=== PATIENT | female | born 1995 | race African-American/Black ===

== ENCOUNTER 2016-09-14 00:22 | Emergency (ER) | payer OTHER ==
[~2016-09-14] VITALS: Ht 160 cm; Wt 89.0 kg
[~2016-09-14 00:22] MED LIST: ANTIBIOTICS PO; ROBA500T PO
[2016-09-14 00:25] VITALS: BP 117/63; PULSE 91; RESP 16; TEMP 98.5; O2SAT 97
[2016-09-14] MEDS ORDERED: ALBUAER3 INH (02:05)
[2016-09-14] MEDS ORDERED: PRED20 PO (02:05)
--- NOTE | 2016-09-14 02:10 | PD ---
HPI Chief Complaint: Cold / Flu Symptoms Time Seen by Provider: 01:58 Travel History International Travel<30 days: No Contact w/Intl Traveler<30days: No Traveled to known affect area: No History of Present Illness HPI This is a 20-year-old female with history of asthma who presents for evaluation. She has had a cough and wheezing since this morning. The cough is nonproductive. She denies sick contacts, recent travel, fevers or chills, sore throat, ear pain. In the past she was using an albuterol inhaler as needed for asthma however she has run out. She has no other complaints. PFSH Past Medical History Diminished Hearing: No Respiratory: Yes (ASTHMA) ?: Not LMP: 2-3 WKS AGO Menopausal: Yes : 0 Social History Alcohol Use: Yes (NOT VERY OFTEN) Tobacco Use: No Substance Use: No (MARIJUANA X 1 MONTH) Allergies-Medications (Allergen,Severity, Reaction): Coded Allergies: Nonsteroidal Anti-Inflammatory Agts (Verified Adverse Reaction, Severe, severe reflux, 09/14/16) Reported Meds & Prescriptions Reported Meds & Active Scripts Active Proair Hfa 8.5 GM Inh (Albuterol Sulfate) 90 Mcg/Act Aer 2 Puff INH Q4-6H PRN 108 mcg/actuation Prednisone 20 Mg Tab 20 Mg PO BID 5 Days Robaxin (Methocarbamol) 500 Mg Tab 500 Mg PO QID Reported [2 antibiotics] Unknown Dose PO DAILY Review of Systems Except as stated in HPI: all other systems reviewed are Neg Physical Exam Narrative GENERAL: Well-developed well-nourished female in no acute distress SKIN: Warm and dry. HEAD: Atraumatic. Normocephalic. EYES: Pupils equal and round. No scleral icterus. No injection or drainage. ENT: No nasal bleeding or discharge. Mucous membranes pink and moist. NECK: Trachea midline. No JVD. CARDIOVASCULAR: Regular rate and rhythm. No murmur appreciated. RESPIRATORY: No accessory muscle use. Slight wheezing. No crackles. Data Data Last Documented VS Vital Signs Date Time Temp Pulse Resp B/P Pulse Ox O2 Delivery O2 Flow Rate FiO2 09/14/16 00:25 98.5 91 16 117/63 97 Room Air Orders Prednisone (Deltasone) (09/14/16 02:15) Albuterol-Ipratropium Neb (Duoneb Neb) (09/14/16 02:15) [facility] Medical Decision Making Medical Screen Exam Complete: Yes Emergency Medical Condition: Yes Medical Record Reviewed: Yes Differential Diagnosis Asthma exacerbation, bronchitis, pneumonia, reactive airway disease, bronchiolitis, pertussis Narrative Course 20-year-old female with history of asthma presents with a one-day history of cough, wheezing. On examination she has slight wheezing bilaterally. Therefore she will be treated with DuoNeb, prednisone. Examination is consistent with asthma exacerbation, likely secondary to viral upper respiratory infection. She is stable for discharge. Diagnosis Primary Impression: Asthma exacerbation Additional Instructions: Medication as needed. Follow-up with primary care physician as needed. Return for any emergent medical conditions. Med/Other Pt SpecificInfo: Prescription(s) given Scripts Albuterol 8.5 GM Inh (Proair Hfa 8.5 GM Inh)90 Mcg/Act Aer2 Puff INH Q4-6H PRN ( SHORTNESS OF BREATH) #1 INHALER Ref 0 108 mcg/actuation Prov:Manuel Quijano MD 09/14/16 Prednisone 20 Mg Tab20 Mg PO BID 5 Days Ref 0 Prov:Manuel Quijano MD 09/14/16 Disposition: 01 DISCHARGE HOME Condition: Stable Titi Mccnan Sep 14, 2016 02:10
[2016-09-14] MEDS ORDERED: RESP: ALBUTEROL 2.5 MG/IPRATROPIUM 0.5 MG NEB (SCH) INH ONE (02:15)
[2016-09-14] MEDS ORDERED: predniSONE 20 MG TAB PO ONE (02:15)
== END 2016-09-14 03:30 | disposition home or self-care (01) ==
LOC: NEPB 00:22
DX: J45.901 Unspecified asthma with (acute) exacerbation (principal)
CPT/HCPCS: 94664; 99283; J7512

== ENCOUNTER 2016-09-16 13:17 | Emergency (ER) | payer OTHER ==
[~2016-09-16] VITALS: Ht 160 cm; Wt 90.0 kg
[~2016-09-16 13:17] MED LIST changes: +ALBUAER3 INH; +PRED20 PO
[2016-09-16 13:20] VITALS: BP 118/70; PULSE 100; RESP 16; TEMP 98.1; O2SAT 98
== END 2016-09-16 13:48 | disposition left against medical advice (07) ==
LOC: NEPE 13:17
DX: L29.9 Pruritus, unspecified (principal); L53.9 Erythematous condition, unspecified; Z53.21 Procedure and treatment not carried out due to patient leaving prior to being seen by health care provider
CPT/HCPCS: 99281

== ENCOUNTER 2016-10-25 19:46 | Emergency (ER) | payer OTHER ==
[~2016-10-25] VITALS: Ht 160 cm; Wt 92.1 kg
[2016-10-25 19:50] VITALS: BP 122/73; PULSE 102; RESP 14; TEMP 98.4; O2SAT 96
--- NOTE | 2016-10-25 22:30 | PD ---
HPI . Pelvic pain Chief Complaint: Abdominal Pain Time Seen by Provider: 22:17 Travel History International Travel<30 days: No Contact w/Intl Traveler<30days: No Traveled to known affect area: No History of Present Illness HPI Patient presents with pelvic pain which started 4 days ago. She is also complaining with nausea, vomiting, frequency of urination and vaginal discharge. She reports about 1 episode of emesis per day. The discharge is white. She has done a home test and it was positive. This is her first . 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 Her last normal menstrual period was September 27. [facility] Past Medical History Diminished Hearing: No Respiratory: Yes (ASTHMA) ?: LMP: SEP 2016 Menopausal: Yes : 0 Social History Alcohol Use: Yes (NOT VERY OFTEN) Tobacco Use: No Substance Use: No (MARIJUANA X 1 MONTH) Allergies-Medications (Allergen,Severity, Reaction): Coded Allergies: Nonsteroidal Anti-Inflammatory Agts (Verified Adverse Reaction, Severe, severe reflux, 10/25/16) Reported Meds & Prescriptions Reported Meds & Active Scripts Active No Active Prescriptions or Reported Medications Review of Systems Except as stated in HPI: all other systems reviewed are Neg Gastrointestinal: Positive: Nausea, Vomiting Genitourinary: Positive: Frequency, Pelvic Pain, Discharge Physical Exam Narrative GENERAL: The patient is smiling and in no distress. SKIN: Warm and dry. HEAD: Atraumatic. Normocephalic. EYES: Pupils equal and round. ENT: No nasal bleeding or discharge. Mucous membranes pink and moist. NECK: Trachea midline. CARDIOVASCULAR: Regular rate and rhythm. RESPIRATORY: No accessory muscle use. GASTROINTESTINAL: Abdomen soft, non-tender, nondistended. : She has a white discharge in the vaginal vault which appears physiological. The os is closed. She complains of cervical motion tenderness and diffuse tenderness to bimanual examination. The patient actually did not tolerate the exam very well. MUSCULOSKELETAL: No obvious deformities. No edema. NEUROLOGICAL: Awake and alert. No obvious cranial nerve deficits. Motor grossly within normal limits. Normal speech. PSYCHIATRIC: Appropriate mood and affect; insight and judgment normal. Data Data Last Documented VS Vital Signs Date Time Temp Pulse Resp B/P Pulse Ox O2 Delivery O2 Flow Rate FiO2 10/25/16 22:26 16 10/25/16 19:50 98.4 102 122/73 96 Room Air Orders Beta Hcg (Quant/Titer) (10/25/16 22:17) Urinalysis - C+S If Indicated (10/25/16 22:17) Ed Urine Pregnancytest Poc (10/25/16 22:17) Gc And Chlamydia Pcr (10/25/16 22:30) Wet Prep Profile (10/25/16 22:30) Ceftriaxone Inj (Rocephin Inj) (10/25/16 23:15) Lidocaine 1% Inj (50 Ml) (Xylocaine 1% I (10/25/16 23:15) Azithromycin (Zithromax) (10/25/16 23:15) Labs Laboratory Tests Test 10/25/16 10/25/16 10/25/16 22:20 22:45 22:50 Human Chorionic Gonadotropin, 290 MIU/ML Quant Clue Cells (Wet Prep) PRESENT Vaginal Trichomonas (Wet Prep) NONE SEEN Vaginal Yeast (Wet Prep) NONE SEEN Urine Color YELLOW Urine Turbidity CLEAR Urine pH 6.0 Urine Specific [place] 1.022 Urine Protein NEG mg/dL Urine Glucose (UA) NEG mg/dL Urine Ketones NEG mg/dL Urine Occult Blood NEG Urine Nitrite NEG Urine Bilirubin NEG Urine Urobilinogen LESS THAN 2.0 MG/DL Urine Leukocyte Esterase NEG Urine RBC LESS THAN 1 /hpf Urine Squamous Epithelial <1 /hpf Cells Microscopic Urinalysis Comment CULT NOT INDICATED MDM Medical Decision Making Medical Screen Exam Complete: Yes Emergency Medical Condition: Yes Differential Diagnosis Differential diagnosis of pelvic pain includes but is not limited to UTI, PID, ectopic , spontaneous AB, constipation, viral illness Narrative Course Patient presents stating that she is about 4 weeks and is having pelvic pain, nausea and vomiting, frequency of urination and vaginal discharge. I have done a quick look with the ultrasound machine and am unable to visualize any activity. Because of the tenderness on bimanual exam, I will go ahead and treat her with Rocephin and Zithromax to cover possible gonorrhea and chlamydia. UA is negative. Quantitative hCG is 290. Wet prep shows clue cells. Her quantitative hCG level would make visualization of impossible. Therefore ultrasound has been canceled. Diagnosis Primary Impression: Early stage of Additional Impression: Bacterial vaginosis Patient Instructions: Abdominal Pain in (ED), Bacterial Vaginosis ( ED), General Instructions Additional Instructions: Follow-up with an OB of your choice for care. Med/Other Pt SpecificInfo: Prescription(s) given Scripts Metronidazole (Flagyl)250 Mg Ueh521 Mg PO TID 7 Days Ref 0 Prov:Deedee Gonzalez MD 10/25/16 Disposition: 01 DISCHARGE HOME Condition: Stable Deedee Gonzalez MD Oct 25, 2016 22:30
[2016-10-25] MEDS ORDERED: AZITHROMYCIN 250 MG TAB PO ONE (23:15)
[2016-10-25] MEDS ORDERED: cefTRIAXone 250 MG VIAL IM ONE (23:15)
[2016-10-25] MEDS ORDERED: LIDOCAINE HCL 1% 50 ML VIAL XX ONE (23:15)
[2016-10-25 23:27] LABS: BETA HCG QUANT 290 MIU/ML (0-5)
[2016-10-25 23:31] LABS: BLOOD, URINE NEG (NEG); GLUCOSE,URINE NEG (NEG); KETONE, URINE NEG (NEG); NITRITE,URINE NEG (NEG); SQUAMOUS EPITHELIAL CELL URINE <1 /hpf (0-5); URINE COLOR YELLOW (YELLW/STRAW)
[2016-10-25 23:34] LABS: COMMENT (UR) CULT NOT INDICATED; CULTURE IF INDICATED CULT NOT INDICATED
[2016-10-25] MEDS ORDERED: METR250 PO (23:54)
[2016-10-26 01:53] LABS: CHLAMYDIA PCR NOT DETECTED (NOT DETECT); NEISSERIA PCR NOT DETECTED (NOT DETECT)
== END 2016-10-26 00:42 | disposition home or self-care (01) ==
LOC: NEPA 19:46
DX: O23.591 Infection of other part of genital tract in pregnancy, first trimester (principal); N76.0 Acute vaginitis; B96.89 Other specified bacterial agents as the cause of diseases classified elsewhere; O26.891 Other specified pregnancy related conditions, first trimester; R10.2 Pelvic and perineal pain; R35.0 Frequency of micturition; O21.9 Vomiting of pregnancy, unspecified; Z87.09 Personal history of other diseases of the respiratory system; Z3A.01 Less than 8 weeks gestation of pregnancy
CPT/HCPCS: 81001; 84702; 84703; 87210; 87491; 87591; 96372; 99284; J0696

== ENCOUNTER 2017-04-14 22:36 | Emergency (ER) | payer OTHER ==
[~2017-04-14] VITALS: Ht 165.1 cm; Wt 92.0 kg
[~2017-04-14 22:36] MED LIST changes: -ALBUAER3 INH; -ANTIBIOTICS PO; +METR250 PO; -PRED20 PO; -ROBA500T PO
[2017-04-14 22:40] VITALS: BP 118/85; PULSE 83; RESP 16; TEMP 98.6; O2SAT 98
== END 2017-04-15 00:12 | disposition left against medical advice (07) ==
LOC: NED 22:36
DX: R68.89 Other general symptoms and signs (principal)
CPT/HCPCS: 99281

== ENCOUNTER 2017-09-15 14:36 | Emergency (ER) | payer OTHER ==
[~2017-09-15] VITALS: Ht 160 cm; Wt 97.0 kg
[2017-09-15 14:38] VITALS: BP 131/70; PULSE 88; RESP 14; TEMP 98.6; O2SAT 96
--- NOTE | 2017-09-15 15:26 | PD ---
HPI . Abdominal pain Chief Complaint: [place] Tender Problem/Complaint Time Seen by Provider: 14:47 Travel History International Travel<30 days: No Contact w/Intl Traveler<30days: No Traveled to known affect area: No History of Present Illness HPI Patient presents with the chief complaint of lower abdominal pain for the last 2 weeks. She states the pain comes and goes. It is associated with nausea but no vomiting or diarrhea. No fever. No urinary tract symptoms such as dysuria, frequency or urgency. Positive vaginal discharge. No dyspareunia. Last normal menstrual period was May. Negative home tests 15 minutes prior to arrival. Pain rated 6/10 with no modifying factors. PFSH Past Medical History Asthma: Yes Diminished Hearing: No GERD: Yes Respiratory: Yes (ASTHMA) Immunizations Current: Yes Tetanus Vaccination: Unknown Influenza Vaccination: No ?: Not LMP: 2-3 MONTHS AGO Menopausal: Yes : 0 Past Surgical History Surgical History: No Previous Surgery Social History Alcohol Use: Yes Tobacco Use: No Substance Use: Yes (MARIJUANA) Allergies-Medications (Allergen,Severity, Reaction): Coded Allergies: aspirin (Verified Allergy, Unknown, 09/15/17) diclofenac (Unverified Adverse Reaction, Severe, severe reflux, 09/15/17) etodolac (Unverified Adverse Reaction, Severe, severe reflux, 09/15/17) flurbiprofen (Unverified Adverse Reaction, Severe, severe reflux, 09/15/17) ibuprofen (Unverified Adverse Reaction, Severe, severe reflux, 09/15/17) indomethacin (Unverified Adverse Reaction, Severe, severe reflux, 09/15/17) ketoprofen (Unverified Adverse Reaction, Severe, severe reflux, 09/15/17) ketorolac (Unverified Adverse Reaction, Severe, severe reflux, 09/15/17) naproxen (Unverified Adverse Reaction, Severe, severe reflux, 09/15/17) oxaprozin (Unverified Adverse Reaction, Severe, severe reflux, 09/15/17) Reported Meds & Prescriptions Reported Meds & Active Scripts Active Flagyl (Metronidazole) 250 Mg Tab 250 Mg PO TID 7 Days Review of Systems Except as stated in HPI: all other systems reviewed are Neg General / Constitutional: No: Fever, Chills Gastrointestinal: Positive: Nausea, No: Vomiting, Diarrhea Genitourinary: Positive: Pelvic Pain, Discharge, No: Urgency, Frequency, Dysuria, Dyspareunia, Vaginal Bleeding Physical Exam Narrative GENERAL: Awake and alert and in no distress. She is talking on her cell phone in no obvious distress. SKIN: warm/dry. HEAD: Normocephalic. Atraumatic. EYES: Pupils equal and round. No scleral icterus. No injection or drainage. ENT: No nasal bleeding or discharge. Mucous membranes pink and moist. NECK: Trachea midline. Full range of motion without pain.. CARDIOVASCULAR: Regular rate and rhythm. RESPIRATORY: No accessory muscle use. Clear to auscultation. Breath sounds equal bilaterally. GASTROINTESTINAL: Abdomen soft. Nontender. Bowel sounds present. Nondistended. : Normal female external genitalia. White rash in the vaginal vault. Bimanual exam was technically difficult. I was really not able to get my fingers around her cervix to check for cervical motion tenderness. She reports mild adnexal tenderness. MUSCULOSKELETAL: No obvious deformities. NEUROLOGICAL: Awake and alert. No obvious cranial nerve deficits. Motor grossly within normal limits. Normal speech. PSYCHIATRIC: Appropriate mood and affect; insight and judgment normal. Data Data Last Documented VS Vital Signs Date Time Temp Pulse Resp B/P (MAP) Pulse Ox O2 Delivery O2 Flow Rate FiO2 09/15/17 14:55 16 09/15/17 14:38 98.6 88 131/70 (90) 96 Orders Orders Urinalysis - C+S If Indicated (09/15/17 14:47) Ed Urine Pregnancytest Poc (09/15/17 14:47) Gc And Chlamydia Pcr (09/15/17 15:15) Wet Prep Profile (09/15/17 15:15) Labs Laboratory Tests Test 09/15/17 15:06 Urine Color YELLOW Urine Turbidity HAZY Urine pH 6.0 Urine Specific [place] 1.026 Urine Protein TRACE mg/dL Urine Glucose (UA) NEG mg/dL Urine Ketones NEG mg/dL Urine Occult Blood NEG Urine Nitrite NEG Urine Bilirubin NEG Urine Urobilinogen 2.0 MG/DL Urine Leukocyte Esterase NEG Urine Squamous Epithelial Cells 5 /hpf Urine Hyaline Casts 1 /lpf Urine Mucus FEW /lpf Microscopic Urinalysis Comment CULT NOT INDICATED MDM Medical Decision Making Medical Screen Exam Complete: Yes Emergency Medical Condition: Yes Differential Diagnosis Differential diagnosis of pelvic pain includes but is not limited to UTI, PID, ectopic , spontaneous AB, constipation, viral illness Narrative Course Patient presents complaining with a two-week history of pelvic pain which comes and goes. She reports a negative home test at home despite the fact that she has had amenorrhea since May. test here is negative. This patient be treated presumptively for PID because of her complaint of pelvic pain. She'll be given a shot of Rocephin here and will be discharged on doxycycline and Flagyl. Diagnosis Primary Impression: Pelvic inflammatory disease Patient Instructions: General Instructions, Pelvic Inflammatory Disease (DC) Med/Other Pt SpecificInfo: Prescription(s) given Scripts Metronidazole (Flagyl) 500 Mg Tab 500 MG PO twice a day for Infection for 7 Days, TAB 0 Refills Prov: Deedee Gonzalez MD 09/15/17 Doxycycline Hyclate (Doxycycline Hyclate) 100 Mg Cap 100 MG PO BID for Infection, #20 CAP 0 Refills Prov: Deedee Gonzalez MD 09/15/17 Disposition: 01 DISCHARGE HOME Condition: Stable Deedee Gonzalez MD Sep 15, 2017 15:26
[2017-09-15 15:32] LABS: BILIRUBIN, URINE NEG (NEG); BLOOD, URINE NEG (NEG); GLUCOSE,URINE NEG (NEG); HYALINE CAST, URINE 1 /lpf (RARE); KETONE, URINE NEG (NEG); MUCUS URINE FEW /lpf (OCC); NITRITE,URINE NEG (NEG); SQUAMOUS EPITHELIAL CELL URINE 5 /hpf (0-5); URINE COLOR YELLOW (YELLW/STRAW); URINE LEUKOCYTE ESTERASE NEG (NEG)
[2017-09-15] MEDS ORDERED: DOXY100C PO (16:11)
[2017-09-15] MEDS ORDERED: METR-1 PO (16:11)
[2017-09-15] MEDS ORDERED: cefTRIAXone 250 MG VIAL IM ONE (16:15)
[2017-09-15] MEDS ORDERED: LIDOCAINE HCL 1% 50 ML VIAL XX ONE (16:15)
[2017-09-15 17:07] VITALS: BP 121/78
== END 2017-09-15 17:11 | disposition home or self-care (01) ==
LOC: NEPD 14:36
DX: N73.9 Female pelvic inflammatory disease, unspecified (principal); J45.909 Unspecified asthma, uncomplicated; K21.9 Gastro-esophageal reflux disease without esophagitis; F12.90 Cannabis use, unspecified, uncomplicated
CPT/HCPCS: 81001; 84703; 87210; 87491; 87591; 96372; 99284; J0696

== ENCOUNTER 2017-09-25 13:49 | Emergency (ER) | payer OTHER ==
[~2017-09-25] VITALS: Ht 160 cm; Wt 96.8 kg
[~2017-09-25 13:49] MED LIST changes: +DOXY100C PO; +METR-1 PO; -METR250 PO
[2017-09-25 13:51] VITALS: BP 113/83; PULSE 88; RESP 16; TEMP 98.3; O2SAT 97
[2017-09-25 14:38] VITALS: O2SAT 100
[2017-09-25] MEDS ORDERED: PRED20 PO (15:32)
[2017-09-25] MEDS ORDERED: ALBUAER3 INH (15:32)
--- NOTE | 2017-09-25 15:33 | PD ---
HPI Chief Complaint: Respiratory Symptoms Time Seen by Provider: 15:16 Travel History International Travel<30 days: No Contact w/Intl Traveler<30days: No Traveled to known affect area: No History of Present Illness HPI This is a 21-year-old female here with chief complaint of cough and intermittent wheezing times one day. Patient reports she has a history of asthma and does not have her albuterol inhaler. She is requesting a refill. She denies fever or chills. She denies shortness of breath. She denies chest pain. She reports she's never been hospitalized or intubated for asthma. Symptom severity is moderate. No aggravating or alleviating factors. PFSH Past Medical History Medical History: Denies Significant Hx Asthma: Yes Diminished Hearing: No GERD: Yes Respiratory: Yes (ASTHMA) Immunizations Current: Yes ?: Unknown Menopausal: Yes : 0 Social History Alcohol Use: Yes Tobacco Use: No Substance Use: Yes (MARIJUANA) Allergies-Medications (Allergen,Severity, Reaction): Coded Allergies: aspirin (Verified Allergy, Unknown, 09/15/17) diclofenac (Unverified Adverse Reaction, Severe, severe reflux, 09/15/17) etodolac (Unverified Adverse Reaction, Severe, severe reflux, 09/15/17) flurbiprofen (Unverified Adverse Reaction, Severe, severe reflux, 09/15/17) ibuprofen (Unverified Adverse Reaction, Severe, severe reflux, 09/15/17) indomethacin (Unverified Adverse Reaction, Severe, severe reflux, 09/15/17) ketoprofen (Unverified Adverse Reaction, Severe, severe reflux, 09/15/17) ketorolac (Unverified Adverse Reaction, Severe, severe reflux, 09/15/17) naproxen (Unverified Adverse Reaction, Severe, severe reflux, 09/15/17) oxaprozin (Unverified Adverse Reaction, Severe, severe reflux, 09/15/17) Reported Meds & Prescriptions Reported Meds & Active Scripts Active Flagyl (Metronidazole) 500 Mg Tab 500 Mg PO TWICE A DAY 7 Days Doxycycline Hyclate 100 Mg Cap 100 Mg PO BID Review of Systems Except as stated in HPI: all other systems reviewed are Neg General / Constitutional: No: Fever Eyes: No: Visual changes HENT: No: Headaches Cardiovascular: No: Chest Pain or Discomfort Respiratory: Positive: Cough, Wheezing Gastrointestinal: No: Abdominal Pain Genitourinary: No: Dysuria Physical Exam Narrative GENERAL: Alert and well-appearing 21-year-old female. No distress. SKIN: Warm and dry. HEAD: Normocephalic. EYES:No injection or drainage. NECK: Supple, trachea midline. CARDIOVASCULAR: Regular rate and rhythm without murmurs, gallops, or rubs. RESPIRATORY: Breath sounds equal bilaterally. No accessory muscle use. Faint expiratory wheezes. Data Data Last Documented VS Vital Signs Date Time Temp Pulse Resp B/P (MAP) Pulse Ox O2 Delivery O2 Flow Rate FiO2 09/25/17 14:38 100 Room Air 09/25/17 13:51 98.3 88 16 MDM Medical Decision Making Medical Screen Exam Complete: Yes Emergency Medical Condition: Yes Differential Diagnosis Asthma exacerbation, medication noncompliance, URI Narrative Course This is a 21-year-old female here with cough and intermittent wheezing times one day. She has a history of asthma. She is well-appearing. No respiratory distress. She was offered a breathing treatment in the ED she declined. She' ll be prescribed a short dose of steroids and prescribed albuterol inhaler. Diagnosis Primary Impression: URI (upper respiratory infection) Qualified Codes: J06.9 - Acute upper respiratory infection, unspecified Additional Impression: Asthma Qualified Codes: J45.998 - Other asthma Referrals: [facility] Additional Instructions: Medications as prescribed. Return to emergency department if you have new or worsening symptoms. Scripts Albuterol 8.5 GM Inh (Proair Hfa 8.5 GM Inh) 90 Mcg/Act Aer 2 PUFF INH Q4-6H Y for SHORTNESS OF BREATH, #1 INHALER 0 Refills 108 mcg/actuation Prov: Mare Negrete 09/25/17 Prednisone (Prednisone) 20 Mg Tab 40 MG PO DAILY, #8 TAB 0 Refills Take 40 mg (2 tablets) daily for 5 days Prov: Mare Negrete 09/25/17 Disposition: 01 DISCHARGE HOME Condition: Stable Mare Negrete Sep 25, 2017 15:33
== END 2017-09-25 15:49 | disposition home or self-care (01) ==
LOC: NEPK 13:49
DX: J06.9 Acute upper respiratory infection, unspecified (principal); J45.998 Other asthma; F12.90 Cannabis use, unspecified, uncomplicated
CPT/HCPCS: 99284

== ENCOUNTER 2017-10-24 13:09 | Emergency (ER) | payer OTHER ==
[~2017-10-24 13:09] MED LIST changes: +ALBUAER3 INH; +PRED20 PO
[2017-10-24 14:34] LABS: BILIRUBIN, URINE NEG (NEG); BLOOD, URINE NEG (NEG); GLUCOSE,URINE NEG (NEG); KETONE, URINE NEG (NEG); MUCUS URINE FEW /lpf (OCC); NITRITE,URINE NEG (NEG); PH, URINE 5.5 (5.0-8.5); SQUAMOUS EPITHELIAL CELL URINE 2 /hpf (0-5); TRANSITIONAL EPI CELLS, URINE <1 /hpf; URINE COLOR YELLOW (YELLW/STRAW); URINE LEUKOCYTE ESTERASE NEG (NEG)
[2017-10-24 14:34] LABS: AUTOMATED NEUTROPHIL # 6.9 TH/MM3 (1.8-7.7); BASOPHIL % 0.5 % (0.0-2.0); EOSINOPHIL # 0.4 TH/MM3 (0-0.4); EOSINOPHIL % 3.8 % (0.0-4.0); HEMATOCRIT 38.1 % (35.0-46.0); LYMPH % 17.6 % (9.0-44.0); LYMPHOCYTE # 1.7 TH/MM3 (1.0-4.8); MEAN CELL VOLUME 84.8 FL (80.0-100.0); MEAN CORPUSCULAR HEMOGLOBIN 28.9 PG (27.0-34.0); MEAN CORPUSCULAR HGB CONC 34.1 % (32.0-36.0); MEAN PLATELET VOLUME 7.9 FL (7.0-11.0); MONO % 4.3 % (0.0-8.0); MONOCYTE # 0.4 TH/MM3 (0-0.9); NEUT % 73.8 % (16.0-70.0); PLATELET COUNT 293 TH/MM3 (150-450); RED BLOOD COUNT 4.49 MIL/MM3 (4.00-5.30); WHITE BLOOD COUNT 9.4 TH/MM3 (4.0-11.0)
--- NOTE | 2017-10-24 14:45 | PD ---
HPI Chief Complaint: GI Complaint Time Seen by Provider: 14:44 Travel History International Travel<30 days: No Contact w/Intl Traveler<30days: No Traveled to known affect area: No History of Present Illness HPI 22-year-old -[place] female presents emergency department with sudden onset lower abdominal discomfort. Patient states she was in the active having intercourse, when the pain started. She denies fever, chills, urinary symptoms , diarrhea, nausea, vomiting, or vaginal discharge. Patient's last menstrual cycle was 10/03/2016. Pain was sharp at the beginning and now crampy. Patient states 6 out of 10. Labs ordered in triage. Patient states allergies to all NSAIDs, however this is due to nausea not hives or allergic reaction. PFSH Past Medical History Asthma: Yes Diminished Hearing: No GERD: Yes Respiratory: Yes (ASTHMA) Immunizations Current: Yes Tetanus Vaccination: Unknown Influenza Vaccination: No ?: Not Menopausal: Yes : 0 Social History Alcohol Use: Yes Tobacco Use: No Substance Use: Yes (MARIJUANA) Allergies-Medications (Allergen,Severity, Reaction): Coded Allergies: aspirin (Verified Allergy, Unknown, 10/24/17) diclofenac (Unverified Adverse Reaction, Severe, severe reflux, 10/24/17) etodolac (Unverified Adverse Reaction, Severe, severe reflux, 10/24/17) flurbiprofen (Unverified Adverse Reaction, Severe, severe reflux, 10/24/17) ibuprofen (Unverified Adverse Reaction, Severe, severe reflux, 10/24/17) indomethacin (Unverified Adverse Reaction, Severe, severe reflux, 10/24/17) ketoprofen (Unverified Adverse Reaction, Severe, severe reflux, 10/24/17) ketorolac (Unverified Adverse Reaction, Severe, severe reflux, 10/24/17) naproxen (Unverified Adverse Reaction, Severe, severe reflux, 10/24/17) oxaprozin (Unverified Adverse Reaction, Severe, severe reflux, 10/24/17) Reported Meds & Prescriptions Reported Meds & Active Scripts Active Proair Hfa 8.5 GM Inh (Albuterol Sulfate) 90 Mcg/Act Aer 2 Puff INH Q4-6H PRN 108 mcg/actuation Prednisone 20 Mg Tab 40 Mg PO DAILY Take 40 mg (2 tablets) daily for 5 days Flagyl (Metronidazole) 500 Mg Tab 500 Mg PO TWICE A DAY 7 Days Doxycycline Hyclate 100 Mg Cap 100 Mg PO BID Review of Systems Except as stated in HPI: all other systems reviewed are Neg General / Constitutional: No: Fever Eyes: No: Visual changes HENT: No: Headaches Cardiovascular: No: Chest Pain or Discomfort Respiratory: No: Shortness of Breath Gastrointestinal: No: Abdominal Pain Genitourinary: Positive: Pelvic Pain, No: Urgency, Frequency, Dysuria, Discharge, Vaginal Bleeding Musculoskeletal: No: Pain Skin: No Rash Neurologic: No: Weakness Psychiatric: No: Depression Endocrine: No: Polydipsia Hematologic/Lymphatic: No: Easy Bruising Physical Exam Narrative GENERAL: Patient is in no acute distress, giggling and laughing while examined. SKIN: Warm and dry. Normal color. Normal turgor HEAD: Atraumatic. Normocephalic. EYES: Pupils equal and round. No scleral icterus. No injection or drainage. ENT: No nasal bleeding or discharge. Mucous membranes pink and moist. NECK: Trachea midline. Supple and nontender. CARDIOVASCULAR: Regular rate and rhythm. RESPIRATORY: No accessory muscle use. Clear to auscultation. Breath sounds equal bilaterally. GASTROINTESTINAL: Abdomen soft, non-tender, nondistended. Hepatic and splenic margins not palpable. Mild suprapubic tenderness with palpation. No point tenderness or rebound. No guarding. No CVA tenderness. MUSCULOSKELETAL: Extremities without clubbing, cyanosis, or edema. No obvious deformities. NEUROLOGICAL: Awake and alert. No obvious cranial nerve deficits. Motor grossly within normal limits. Five out of 5 muscle strength in the arms and legs. Normal speech. PSYCHIATRIC: Appropriate mood and affect; insight and judgment normal. Data Data Orders Orders Complete Blood Count With Diff (10/24/17 13:55) Comprehensive Metabolic Panel (10/24/17 13:55) Urinalysis - C+S If Indicated (10/24/17 13:55) Ed Urine Pregnancytest Poc (10/24/17 13:55) Labs Laboratory Tests Test 10/24/17 14:10 10/24/17 14:19 White Blood Count 9.4 TH/MM3 Red Blood Count 4.49 MIL/MM3 Hemoglobin 13.0 GM/DL Hematocrit 38.1 % Mean Corpuscular Volume 84.8 FL Mean Corpuscular Hemoglobin 28.9 PG Mean Corpuscular Hemoglobin Concent 34.1 % Red Cell Distribution Width 14.0 % Platelet Count 293 TH/MM3 Mean Platelet Volume 7.9 FL Neutrophils (%) (Auto) 73.8 % Lymphocytes (%) (Auto) 17.6 % Monocytes (%) (Auto) 4.3 % Eosinophils (%) (Auto) 3.8 % Basophils (%) (Auto) 0.5 % Neutrophils # (Auto) 6.9 TH/MM3 Lymphocytes # (Auto) 1.7 TH/MM3 Monocytes # (Auto) 0.4 TH/MM3 Eosinophils # (Auto) 0.4 TH/MM3 Basophils # (Auto) 0.0 TH/MM3 CBC Comment DIFF FINAL Differential Comment Urine Color YELLOW Urine Turbidity CLEAR Urine pH 5.5 Urine Specific [place] 1.023 Urine Protein NEG mg/dL Urine Glucose (UA) NEG mg/dL Urine Ketones NEG mg/dL Urine Occult Blood NEG Urine Nitrite NEG Urine Bilirubin NEG Urine Urobilinogen LESS THAN 2.0 MG/DL Urine Leukocyte Esterase NEG Urine RBC LESS THAN 1 /hpf Urine WBC 2 /hpf Urine Squamous Epithelial Cells 2 /hpf Urine Transitional Epithelial Cells <1 /hpf Urine Mucus FEW /lpf Microscopic Urinalysis Comment CULT NOT INDICATED MDM Medical Decision Making Medical Screen Exam Complete: Yes Emergency Medical Condition: Yes Differential Diagnosis Pelvic pain. [place]. UTI. Ovulation. Narrative Course CBC is unremarkable. CMP is unremarkable. Urinalysis is unremarkable. Urine is negative. Further workup was not felt warranted based on my history and physical. Patient is given Toradol 60 mg IM. Patient follow-up if symptoms worsen as needed. Diagnosis [facility]: [facility] Patient Instructions: Acute Abdominal Pain (ED), General Instructions, [place] (DC) Additional Instructions: CBC is unremarkable. CMP is unremarkable. Urinalysis is unremarkable. Urine is negative. Further workup was not felt warranted based on my history and physical. Patient is given Toradol 60 mg IM. Patient follow-up if symptoms worsen as needed. Med/Other Pt SpecificInfo: No Meds Exist/No RX given Disposition: DISCHARGE HOME Condition: Stable Collin Rubio Oct 24, 2017 14:45
[2017-10-24 14:58] LABS: ALBUMIN 3.9 GM/DL (3.4-5.0); ALT (GPT) 25 U/L (10-53); AST (GOT) 12 U/L (15-37); BICARBONATE 24.3 MEQ/L (21.0-32.0); BLOOD UREA NITROGEN 11 MG/DL (7-18); CALCIUM 9.4 MG/DL (8.5-10.1); CHLORIDE 104 MEQ/L (98-107); CREATININE 0.78 MG/DL (0.50-1.00); GLOMERULAR FILTRATION RATE 112 ML/MIN (>89); GLUCOSE,RANDOM 103 MG/DL (74-106); SODIUM (NA) 137 MEQ/L (136-145)
[2017-10-24 15:00] LABS: ALKALINE PHOSPHATASE 93 U/L (45-117); TOTAL BILIRUBIN ADULT 0.4 MG/DL (0.2-1.0); TOTAL PROTEIN 8.5 GM/DL (6.4-8.2)
[2017-10-24] MEDS ORDERED: KETOROLAC TROMETHAMINE 60 MG/2 ML (IM) VIAL IM ONE (15:00)
== END 2017-10-24 15:21 | disposition home or self-care (01) ==
LOC: NEPD 13:09
DX: N94.0 Mittelschmerz (principal); J45.909 Unspecified asthma, uncomplicated; Z88.8 Allergy status to other drugs, medicaments and biological substances
CPT/HCPCS: 80053; 81001; 84703; 85025; 96372; 99283; J1885

== ENCOUNTER 2018-02-02 14:17 | Emergency (ER) | payer SELFPAY ==
[~2018-02-02] VITALS: Ht 160 cm; Wt 100.0 kg
[2018-02-02 14:18] VITALS: BP 134/78; PULSE 89; RESP 18; TEMP 98.2; O2SAT 99
--- NOTE | 2018-02-02 14:47 | PD ---
HPI Chief Complaint: Abdominal Pain Time Seen by Provider: 14:33 Travel History International Travel<30 days: No Contact w/Intl Traveler<30days: No Traveled to known affect area: No History of Present Illness HPI 22-year-old female complains of left lower quadrant abdominal pain with nausea. Patient states that she has intermittent sharp pain in the left lower quadrant of the abdomen with intermittent nausea for the past 2 weeks. Patient states that the abdominal pain is sharp shooting pain transient, intermittent pain, without radiation. Patient states that her last menstruation period Was 2017 and it was late. Patient denies any more vomiting or diarrhea. Patient denies any dysuria frequency. Patient states that she has small amounts of vaginal discharge for the past 2 days. Patient denies any fever chills. Patient denies any back pain. PFSH Past Medical History Asthma: Yes Diminished Hearing: No GERD: Yes Respiratory: Yes (ASTHMA) Immunizations Current: Yes Tetanus Vaccination: Unknown ?: Unknown LMP: December 2017 Menopausal: Yes : 1 Miscarriage: 1 Social History Alcohol Use: Yes (occasion) Tobacco Use: No Substance Use: No Allergies-Medications (Allergen,Severity, Reaction): Coded Allergies: aspirin (Verified Allergy, Unknown, 10/24/17) diclofenac (Unverified Adverse Reaction, Severe, severe reflux, 10/24/17) etodolac (Unverified Adverse Reaction, Severe, severe reflux, 10/24/17) flurbiprofen (Unverified Adverse Reaction, Severe, severe reflux, 10/24/17) ibuprofen (Unverified Adverse Reaction, Severe, severe reflux, 10/24/17) indomethacin (Unverified Adverse Reaction, Severe, severe reflux, 10/24/17) ketoprofen (Unverified Adverse Reaction, Severe, severe reflux, 10/24/17) ketorolac (Unverified Adverse Reaction, Severe, severe reflux, 10/24/17) naproxen (Unverified Adverse Reaction, Severe, severe reflux, 10/24/17) oxaprozin (Unverified Adverse Reaction, Severe, severe reflux, 10/24/17) Reported Meds & Prescriptions Reported Meds & Active Scripts Active Proair Hfa 8.5 GM Inh (Albuterol Sulfate) 90 Mcg/Act Aer 2 Puff INH Q4-6H PRN 108 mcg/actuation Prednisone 20 Mg Tab 40 Mg PO DAILY Take 40 mg (2 tablets) daily for 5 days Flagyl (Metronidazole) 500 Mg Tab 500 Mg PO TWICE A DAY 7 Days Doxycycline Hyclate 100 Mg Cap 100 Mg PO BID Review of Systems General / Constitutional: No: Fever Eyes: No: Visual changes HENT: No: Headaches Cardiovascular: No: Chest Pain or Discomfort Respiratory: No: Shortness of Breath Gastrointestinal: Positive: Nausea, Abdominal Pain Genitourinary: No: Dysuria Musculoskeletal: No: Pain Skin: No Rash Neurologic: No: Weakness Psychiatric: No: Depression Endocrine: No: Polydipsia Hematologic/Lymphatic: No: Easy Bruising Physical Exam Narrative GENERAL: Well-nourished, well-developed patient. SKIN: Focused skin assessment warm/dry. HEAD: Normocephalic. EYES: No scleral icterus. No injection or drainage. NECK: Supple, trachea midline. No JVD or lymphadenopathy. CARDIOVASCULAR: Regular rate and rhythm without murmurs, gallops, or rubs. RESPIRATORY: Breath sounds equal bilaterally. No accessory muscle use. GASTROINTESTINAL: Abdomen soft, non-tender, nondistended. MUSCULOSKELETAL: No cyanosis, or edema. BACK: Nontender without obvious deformity. No CVA tenderness. Neurologic exam normal. Data Data Last Documented VS Vital Signs Date Time Temp Pulse Resp B/P (MAP) Pulse Ox O2 Delivery O2 Flow Rate FiO2 02/02/18 14:18 98.2 89 18 134/78 (96) 99 Orders Orders Ed Urine Pregnancytest Poc (02/02/18 14:38) [facility] Medical Decision Making Medical Screen Exam Complete: Yes Emergency Medical Condition: Yes Interpretation(s) Urine test negative. Differential Diagnosis Differential diagnosis including musculoskeletal, UTI, ovarian cyst, cervicitis , PID. Narrative Course 32-year-old female with intermittent sharp left lower quadrant abdominal pain. Patient is asymptomatic now. Vital signs stable. Patient is afebrile. Diagnosis Primary Impression: Pelvic pain Patient Instructions: General Instructions Additional Instructions: Advil Tylenol for pain. Follow-up with data conversion analyst. Return if increased abdominal pelvic pain, fever, increasing vaginal discharge or bleeding. Med/Other Pt SpecificInfo: No Meds Exist/No RX given Disposition: 01 DISCHARGE HOME Condition: Stable Radames Blackman MD Feb 02, 2018 14:47
== END 2018-02-02 15:17 | disposition home or self-care (01) ==
LOC: NEPD 14:17
DX: R10.2 Pelvic and perineal pain (principal); R11.0 Nausea; N89.8 Other specified noninflammatory disorders of vagina; J45.909 Unspecified asthma, uncomplicated; K21.9 Gastro-esophageal reflux disease without esophagitis
CPT/HCPCS: 84703; 99282